=== PATIENT | female | born 1975 | race African-American/Black ===

== ENCOUNTER 2023-01-19 15:21 | Emergency (ER) | payer MEDICAID, OTHER ==
[~2023-01-19] VITALS: Ht 170.2 cm; Wt 86.0 kg
[2023-01-19 15:40] VITALS: O2SAT 100
[2023-01-19] MEDS ORDERED: CYCLOBENZAPRINE 10MG TABLET PO ONE (16:45)
[2023-01-19] MEDS ORDERED: KETOROLAC 15MG/ML VIAL IM ONE (16:45)
[2023-01-19] MEDS ORDERED: CYCL5TAB MT (17:08)
[2023-01-19] MEDS ORDERED: NAPR-1176 MT (17:08)
[2023-01-19 18:04] VITALS: BP 140/87; PULSE 68; RESP 16; TEMP 98.6
== END 2023-01-19 18:05 | disposition home or self-care (01) ==
LOC: ER 15:21
DX: M54.50 Low back pain, unspecified (principal); Z90.710 Acquired absence of both cervix and uterus
CPT/HCPCS: 99283; 81025; 96372; J1885